=== PATIENT | male | born 1975 | race Caucasian/White ===

== ENCOUNTER 2020-01-29 08:12 | Inpatient (IN) | payer OTHER ==
[~2020-01-29] VITALS: Ht 172.7 cm; Wt 77.2 kg
--- NOTE | ~2020-01-29 | EMS ---
[address] [address] EMS Patient Care Report Name: JUAN COLEMAN Room #: PRE M.R.#: [id number] Admission: Attend Phys: Discharge: Date of : 75 Report #: [id number] THIS REPORT FOR: //name// Report Transmitted: 01/29/2020 07:55 EMS Care Summary [place], [place]/[facility] Incident [id number] @ 01/29/2020 07:52 Incident Location [address] [place] [address] Patient JUAN COLEMAN Male, 44 Years 1975 Patient Address [facility] [place] [address] Patient History Hyperlipidemia,Gastro-Esophageal Reflux Disease (GERD),Schizoaffective Disorder,Paranoid Schizophrenia, Patient Allergies No known allergies, Patient Medications Risperdal, Seroquel, Lisinopril, Chief Complaint LOSS OF LEG FUNCTION Disposition Transported No Lights/[place]y Dispatch Reason Sick Person Transported To [facility] Narrative DISPATCHED EMERGENCY TO THE SCENE OF A REPORTED SICK PERSON. UPON ARRIVAL, FOUND PATIENT STANDING UPRIGHT INSIDE THE BUSINESS, ALERT AND ORIENTED X1. PATIENT STATES HE WAS WALKING DOWN THE SIDEWALK AND TRIPPED, FALLING TO THE [address] [address] EMS Patient Care Report Name: JUAN COLEMAN Room #: PRE AFSHAN Joseph#: [id number] Admission: Attend Phys: Discharge: Date of : 75 Report #: [id number] GROUND. PATIENT STATES BOTH OF HIS LEG ARE "LOCKED UP" AND HIS LEFT SHOULDER HURTS. PATIENT DOES NOT KNOW HIS FULL NAME, HIS BIRTHDAY, OR WHERE HE LIVES OTHER THAN A [facility] [employer] IN [place]. PATIENT IS ASSISTED TO THE COT AND SECURED. TRANSPORTED TO THE AMBULANCE, LOADED, AND SECURED. VITAL SIGNS ASSESSED. PATIENT TRANSPORTED IN A POSITION OF COMFORT TO [facility] WITHOUT INCIDENT OR CHANGE IN CONDITION. VITAL SIGNS MONITORED DURING TRANSPORT. PATIENT CARE TRANSFERRED TO ED STAFF. RESEARCH FROM THE INTERNET REVEALED THAT THE PATIENT IS FROM [facility]. CONTACT WITH THE FACILITY REVEALS PATIENT'S NAME AND INFO. STAFF WAS NOT AWARE THAT THE PATIENT WAS NOT AT THE FACILITY. Initial Vitals @08:04P: 88,R: 18,BP: 136/62,Pain: 4/10,GCS: 14,Glucose: 99,SpO2: 95,Revised Trauma: 12, @08:09P: 88,R: 18,BP: 130/60,Pain: 4/10,GCS: 14,SpO2: 98,Revised Trauma: 12, Assessments @07:59MENTAL:Confused,SKIN:HEENT:Head/Face: No Abnormalities,Neck/Airway: No Abnormalities,LUNG SOUNDS:General: No Abnormalities,ABDOMEN:General: No Abnormalities,PELVIS//GI:No Abnormalities,EXTREMITIES:Left Arm: Other,Right Leg: Abnormal Sensation,Left Leg: Abnormal Sensation,Capillary Refill: Right Upper: < 2 Sec,Right Arm: No Abnormalities,PULSE:Radial: 2+ Normal,NEURO:No Abnormalities, Impression Confusion/Delirium Procedures @07:59ALS AssessmentResponse: UnchangedSucceeded Timeline 07:49,Call Received 07:49,Dispatch Notified 07:52,Dispatched 07:53,En Route 07:57,On Scene 07:59,At Patient 07:59,ALS Assessment,Response: UnchangedSucceeded, 08:04,BP: 136/62 M,PULSE: 88,RR: 18 R,SPO2: 95 Ox,ETCO2: ,B,PAIN: 4,GCS: 14, 08:05,Depart Scene 08:09,BP: 130/60 M,PULSE: 88,RR: 18 R,SPO2: 98 Ox,ETCO2: ,BG: ,PAIN: 4,GCS: 14, 08:10,At Destination 08:32,Call Closed Disclaimer [facility] [address] [place] [address] EMS Patient Care Report Name: JUAN COLEMAN Room #: PRE ER M.R.#: [id number] Admission: Attend Phys: Discharge: Date of : 75 Report #: [id number] v1.1 Copyright 2020 [employer] This EMS Care Summary contains data elements from the applicable legal record (which may be displayed differently). It is designed to provide pertinent information for the following purposes: continuity of care, clinical quality, and state data reporting. The complete legal record is available to ED staff and administrators of the receiving hospital in [employer]'s Patient Tracker. All data is provided "as is."
[2020-01-29 08:13] VITALS: BP 134/67
[2020-01-29] MEDS ORDERED: RISPERDAL2 MG PO (08:21)
[2020-01-29] MEDS ORDERED: SEROQUEL 100 M100 M1 PO (08:21)
[2020-01-29 08:41] LABS: ABSOLUTE NEUTROPHILS 9.6 thou/uL (1.4-8.2); BASOPHILS 0.6 % (0.0-2.0); EOSINOPHILS 0.5 % (0.0-3.0); HEMATOCRIT 44.5 % (42.0-52.0); HEMOGLOBIN 15.6 gm/dL (14.0-18.0); LYMPHOCYTES 13.2 % (24.0-44.0); MCH 37.9 pg (26.0-34.0); MCHC 35.2 g/dL (28.0-37.0); MCV 107.6 fL (80.0-100.0); MONOCYTES 8.1 % (1.0-8.0); PLATELET COUNT 241 thou/uL (150-400); POLYS 77.6 % (36.0-66.0); RBC 4.13 mil/uL (4.50-6.00); RDW 14.4 % (10.5-14.5); WBC 12.3 thou/uL (4.0-11.0)
[2020-01-29 08:53] LABS: CALCIUM 8.5 mg/dL (8.5-10.1); CREATININE 0.8 mg/dL (0.7-1.3); POTASSIUM 3.7 mmol/L (3.5-5.1)
[2020-01-29] MEDS ORDERED: RISPERIDONE1 MG/1 M2 IM (09:21)
[2020-01-29] MEDS ORDERED: ACETAMINOPHEN-1 EACH PO (09:24)
[2020-01-29] MEDS ORDERED: CHILDREN'S ASPI81 M1 PO (09:24)
[2020-01-29] MEDS ORDERED: ZESTRIL5 MG PO (09:25)
[2020-01-29] MEDS ORDERED: COLACE100 MG PO (09:25)
[2020-01-29] MEDS ORDERED: BISMATROL262 MG/15 PO (09:26)
[2020-01-29] MEDS ORDERED: KLONOPIN1 MG PO (09:26)
[2020-01-29] MEDS ORDERED: NON-ASPIRIN325 MG PO (09:27)
[2020-01-29] MEDS ORDERED: MILK OF MA400 MG/5 M PO (09:27)
[2020-01-29 09:52] LABS: MAGNESIUM 2.3 mg/dL (1.8-2.4)
--- NOTE | 2020-01-29 10:32 | EKG ---
[facility] [place] [address] ELECTROCARDIOGRAM REPORT Name: JUAN COLEMAN Room #: REG [facility]..#: [id number] Admission: 01/29/20 Attend Phys: Discharge: Date of : 75 Report #: [id number] THIS REPORT FOR: cc: Heron Suero MD, Michael H. MD Lundgren, Craig H. MD [facility] ~ THIS REPORT FOR: //name// [facility] ED Test Date: 2020-01-29 Test Time: 08:32:53 Pat Name: JUAN COLEMAN Department: Room: Gender: Paraprofessional Education Assistant: [facility] : 1975 Requested By: Stephanie Campbell Order Number: [id number] MD: Michael Zavala Measurements Intervals [place] Rate: 83 P: 17 UT: 191 QRS: 108 QRSD: 101 T: 42 QT: 379 QTc: 446 Interpretive Statements Sinus rhythm Right axis deviation No previous ECG available for comparison Electronically Signed On 01-29-2020 10:32:29 CDT by Michael Zavala [email or web address] <ELECTRONICALLY SIGNED> By: Michael Zavala MD, [facility] 01/29/20 1032 1 1 Michael Zavala MD, [facility] /EPI
--- NOTE | 2020-01-29 10:44 | NUR ---
[facility]. GARY CONTRERAS [phone]
[2020-01-29 11:56] LABS: AMP/METHAMP Negative (Negative); BARBITURATES Negative (Negative); BENZODIAZEPINES Negative (Negative); COCAINE Negative (Negative); METHADONE Negative (Negative); OPIATES POSITIVE (Negative); PCP Negative (Negative)
[2020-01-29 13:03] VITALS: BP 126/68
--- NOTE | 2020-01-29 13:14 | NUR ---
CALLED TO GIVE REPORT TO INPATIENT NURSE WAS TOLD SHE WILL CALL BACK IN A FEW MINUTES
--- NOTE | 2020-01-29 13:30 | NUR ---
CALLED AGAIN TO GIVE REPORT. WAS INITIALLY TOLD THE NURSE WAS THERE, PLACED ON HOLD FOR 6 MINUTES, HUNG UP AND CALLED AGAIN, AND WAS THIS TIME TOLD NURSE IS IN A PATIENT ROOM
[2020-01-29 14:10] VITALS: BP 127/62
--- NOTE | 2020-01-29 14:52 | NUR ---
PT ADMITTED T0 3W ROOM 354. PT ALERT AND ORIENTED X4, PT DNEIES CHEST PAIN, NAUSEA AND VOMITTING. VITAL SIGNS STABLE AND ASSESSMENT COMPLETED. CONSENTS SIGNED BY PT. PT ORIENTED TO ROOM. ADMISSION COMPLETED. PT DENIES ANY NEEDS. CALL LIGHT AND TABLE WIITHIN REACH. BED AT LOWEST LEVEL. WILL CONTINUE TO MONITOR.
[2020-01-29 19:45] VITALS: BP 151/57
--- NOTE | 2020-01-30 02:35 | NUR ---
PT ALERT AND ORIENTED X4. VSS AFEBRILE. LUNGS CLEAR DIMINSHED BASES. UNLABORED ON RA. NO C/O PAIN. CLONAZEPAM GIVEN TO HELP PT WITH ANXIETY AND SLEEP. PT RESTING QUIETLY. NO S/S DISTRESS.
[2020-01-30 04:28] VITALS: BP 125/70
[2020-01-30 05:58] LABS: HEMATOCRIT 42.5 % (42.0-52.0); HEMOGLOBIN 14.4 gm/dL (14.0-18.0); MCH 37.1 pg (26.0-34.0); RBC 3.9 mil/uL (4.50-6.00); RDW 14.4 % (10.5-14.5); WBC 6.5 thou/uL (4.0-11.0)
[2020-01-30 06:34] LABS: CREATININE 0.7 mg/dL (0.7-1.3); POTASSIUM 3.7 mmol/L (3.5-5.1)
[2020-01-30 08:19] VITALS: BP 103/44
--- NOTE | 2020-01-30 11:20 | NUR ---
1005 PT TAKEN DOWN FOR EGD.
[2020-01-30 12:21] VITALS: BP 131/68
--- NOTE | 2020-01-30 13:32 | NUR ---
PT CARE AASUMED AT 0700, PT ALERT AND ORIENTED X4, PT SEEM ANXIOUS ABOUT WANTING TO LEAVE THE HOSPITAL NOW. EXPLAINED TO PT ABOUT [facility] AND ALSO AWATING FOR HIS COVID TEST. PT FURTHERMORE STATES HER DOES NOT WANT TO GO BACK TO HIS PREVIOUS FACILITY, CM MGT AND PT STATE GUARDIAN MADE AWARE. CONSULT TO DR. SMITH MADE PER DR. ADKINS. PT DENIES ANY PAIN. CALL LIGHT AND TABLE IN REACH. BED AT LOWEST LEVEL WITH ALARM ON. WILL CONTINUE TO MONITOR.
--- NOTE | 2020-01-30 14:34 | NUR ---
INITIAL ASSESSMENT: Received consult. TIM reviewed chart and spoke with nursing and attending physician. Pt was admitted from [facility]. Pt placed in Enhanced Isolation to r/o COVID-19. Pt's first test is negative. Second test is pending. Pt with hx of bipolar disorder and schizophrenia. Pt is a aranda of the State through the [facility] [employer]'s office. TIM spoke with Rambo Martinez with the PA office to provide update and notify of pt's admission. Per chart, pt eloped from his nursing facility and was found by EMS after falling. Rambo Martinez provided guardianship ppwk, which has been placed on pt's chart. TIM informed nursing to obtain consents through the PA office. TIM spoke with Cuong in admissions at [facility]. Pt has lived at their facility for about 12 years. Pt is independent with ambulation. Cuong states that pt has had privileges to leave the building to smoke and to go to places around the facility, but has always returned. Cuong states that pt never exhibited any behaviors that would indicate that he was an elopement risk. Cuong asked about pt going to [facility] prior to returning to their facility. TIM explained age criteria. Cuong states they will accept pt back, but were interested in inpt psych if recommended by physicians. TIM discussed case with psych, who states that pt is unable to be admitted to [facility] due to age. Inpt psych placement was discussed with the PA office. However, pt should be able to return to [facility] at time of discharge. TIM faxed clinical info and COVID test results to the facility for review. TIM is following to assist as needed with discharge planning.
[2020-01-30 15:25] VITALS: BP 109/59
[2020-01-30 21:04] VITALS: BP 107/50
--- NOTE | 2020-01-31 03:42 | NUR ---
PT IS ALERT AND ORIENTED X4. VSS. REFUSED IV FLUIDS BUT IS DRINKING PO PLENTY AMOUNTS. SITTER OUTSIDE DOOR WATCHING PT TO MAKE SURE HE DOES NOT LEAVE AMA SINCE HE IS A [place] OF THE STATE. COVID NEGATIVE SO FAR. WILL ASK DAY SHIFT NS TO F/U WITH KAYLEY BUSH TO SEE IF ANOTHER COVID TEST IS NECESSARY FOR PT TO GO BACK TO A FACILITY.
[2020-01-31 05:14] VITALS: BP 105/54
[2020-01-31 08:35] VITALS: BP 115/60
[2020-01-31 09:41] LABS: CALCIUM 8.6 mg/dL (8.5-10.1); CREATININE 0.7 mg/dL (0.7-1.3); POTASSIUM 3.8 mmol/L (3.5-5.1)
--- NOTE | 2020-01-31 10:52 | NUR ---
ASSUMED PATIENT CARE THIS AM AT APPROXIMATELY 0700. PATIENT AWAKE, ALERT, CALM. NO AGITATION NOTED AT THIS TIME. PATIENT RESTING IN BED. REFUSING IV FLUIDS, ENCOURAGED PO INTAKE AND TOLERATING WELL. ORDERS RECEIVED FOR PATIENT TO BE DISCHARGED TODAY TO CARE FACILTY.
--- NOTE | 2020-01-31 15:02 | NUR ---
patient taken off unit at this time accmapnied by wheelchair tranportation back to [facility] facility. patient left unit with all pesonal belongings. iv saline lock removed. no telemety monitor in place. monitor at station. left unit willingly in stable condition.
--- NOTE | 2020-01-31 15:14 | NUR ---
DISCHARGE NOTE: TIM reviewed chart and spoke with nursing and attending physician. PT is medically stable to discharge back to [facility] today. TIM faxed finalized discharge orders/summary to the facility and spoke with Cuong, who confirmed they are able to accept pt back. Pt does not qualify for the [facility] unit at [facility] or inpt psych per psych. Cuong verbalized understanding and states they will discuss plan with pt regarding new rules regarding his ability to leave the facility. TIM faxed discharge orders/summary to [facility] office and spoke with Rambo Martinez. Consent for discharge received. Chart copy requested. Nursing provided with number to call report. TIM arranged w/c van transportation for [phone] per [facility] [employer]. No additional SW needs identified at this time, but is available to assist should needs arise.
== END 2020-01-31 15:02 | DRG 558 ==
LOC: ER 08:12 → EDBD 08:12 → 3W 12:41 → EROBS 12:41 → 3W 14:05
PROVIDERS: Emergency Medicine; Internal Medicine; ADMIT Hospitalist; ATTEND Hospitalist
DX: M62.82 Rhabdomyolysis (principal); Z20.828 Contact with and (suspected) exposure to other viral communicable diseases; F31.9 Bipolar disorder, unspecified; I10 Essential (primary) hypertension; E78.5 Hyperlipidemia, unspecified; F17.210 Nicotine dependence, cigarettes, uncomplicated; F25.9 Schizoaffective disorder, unspecified; Z79.899 Other long term (current) drug therapy
CPT/HCPCS: 10080